=== PATIENT | female | born 1925 | race Caucasian/White ===

== ENCOUNTER → 2016-11-28 | Day surgery (SDC) | payer MEDICARE ==
[~2016-11-28] MED LIST: B-122000 PO; BUPIVACAINE HCL PF 0.5% 30 ML VIAL ONE; LEVO.05 PO; OXYC-392 PO; PROPOFOL 200 MG/20 ML AMP IV ONE; TRIAMCINOLONE ACETONIDE 40 MG/ML VIAL I-ARTICULR ONE; ULTR50TA5 PO; WARF4TAB52 PO; methylPREDNISolone ACETATE 40 MG/ML VIAL I-ARTICULR ONE
--- NOTE | 2016-12-02 07:47 | M6 ---
cc: JACQUELIN LYNCH M.D. DATE: 11/28/2016 DATE OF : 1925 PROCEDURE Fluoroscopically guided injection left hip joint was used. History and physical was completed and signed. Consent was signed. Procedure site was marked. Medications were listed and reconciled. Pain score was recorded. Allergies were noted. Time out was taken. Fluoroscopy time was recorded where applicable. Sedation was administered or directed by Dr. Lynch. The patient was given oxygen. The patient was monitored by a registered nurse. Total procedure time was greater than 15 minutes. IV was started, blood pressure cuff, pulse oximeter and EKG were applied. The patient was placed in the supine position on a Levy table sedated with small amounts of propofol titrated to effect. Vital signs were monitored and remained stable throughout the procedure left hip area was prepped with alcohol and 10% Betadine solution and draped with sterile drapes. Fluoroscopy was used to visualize the left acetabulum. Then a 3-1/2-inch 22-gauge spinal needle was advanced into the cephalad portion of the extent acetabulum. There was negative aspiration for blood or any other type of fluid and the patient was given 3 mL of 0.5% Marcaine 20 mg of Depo-Medrol 20 mg of Kenalog. Following this the patient was taken to the recovery room with stable vital signs neurologically intact. W. MD AKIKO Angel/aakash /9:58 AM /7:43 AM
== END | disposition home or self-care (01) ==
LOC: PHSDC 07:54
PROVIDERS: ATTEND Pain Medicine Interventional Pain Medicine
DX: M25.552 Pain in left hip (principal); R10.30 Lower abdominal pain, unspecified
CPT/HCPCS: 20610; 76000; 99152; J1030; J3301